=== PATIENT | male | born 1980 | race Asian ===

== ENCOUNTER 2022-03-24 16:36 | Emergency (ER) | payer OTHER ==
[~2022-03-24] VITALS: Ht 175.3 cm; Wt 99.2 kg
[2022-03-24 16:37] VITALS: BP 144/93
[2022-03-24] MEDS ORDERED: IBUP200C25 PO (16:48)
[2022-03-24] MEDS ORDERED: ACETAMINOPHEN TAB 650MG DOSE (2X325MG) PO ONE (16:55)
[2022-03-24 18:07] LABS: RSV AMPLIFICATION NEGATIVE (NEGATIVE)
[2022-03-24] MEDS ORDERED: IBUPROFEN 800 MG TAB PO ONE (20:40)
[2022-03-24] MEDS ORDERED: NIRMATRELVIR/RITONAVIR CO-PACK (EMERGENCY USE AUTH) PO SCH ×2 (21:00)
[2022-03-24] MEDS ORDERED: IBUP1TAB6 PO (21:06)
[2022-03-24] MEDS ORDERED: HOME MED LIST COMPLETE! XX SCH (21:10)
== END 2022-03-24 21:30 | disposition home or self-care (01) ==
LOC: M ED 16:36
DX: U07.1 COVID-19 (principal)